=== PATIENT | male | born 1950 | race Caucasian/White ===

== ENCOUNTER 2019-04-03 03:28 | Emergency (ER) | payer MEDICARE, MEDICAID ==
[~2019-04-03] VITALS: Ht 188 cm; Wt 65.9 kg
[2019-04-03] MEDS ORDERED: ondansetron 4mg rapidly disintigrating tab PO ONE (03:45)
[2019-04-03] MEDS ORDERED: ONDA4TAB12 PO (03:46)
[2019-04-03 04:00] VITALS: BP 133/96
== END 2019-04-03 03:55 | disposition home or self-care (01) ==
LOC: ER 03:28
DX: R11.2 Nausea with vomiting, unspecified (principal); R19.7 Diarrhea, unspecified; Z79.899 Other long term (current) drug therapy
CPT/HCPCS: 99283